=== PATIENT | male | born 1980 | race African-American/Black ===

== ENCOUNTER 2017-04-01 15:35 | Inpatient (IN) | payer OTHER ==
[~2017-04-01] VITALS: Ht 185.4 cm; Wt 113.1 kg
[~2017-04-01 15:35] MED LIST: HYDR25TA84 PO; LISI-661 PO
[2017-04-01 17:16] LABS: BASOPHILS % (AUTO) 0.5 % (0.0-2.0); CALCIUM, TOTAL 8.7 mg/dL (8.8-10.5); CREATININE 2.74 mg/dL (0.60-1.30); EOSINOPHILS % (AUTO) 3.8 % (1.0-6.0); HEMOGLOBIN 15.6 g/dL (13.5-17.5); LYMPHOCYTES # (AUTO) 2.6 K/uL (1.0-4.8); LYMPHOCYTES % (AUTO) 35.6 % (22.0-44.0); MEAN CORPUSCULAR HEMOGLOBIN 30.6 pg (26.0-34.0); MEAN CORPUSCULAR HGB CONC 33.9 G/dL (31.0-37.0); MEAN CORPUSCULAR VOLUME 90 fL (80-100); MONOCYTES # (AUTO) 0.7 K/uL (0.1-1.0); MONOCYTES % (AUTO) 9.7 % (2.0-9.0); NEUTROPHILS # (AUTO) 3.7 K/uL (1.8-7.7); NEUTROPHILS % (AUTO) 50.4 % (40.0-70.0); PLATELET COUNT (AUTO) 148 K/uL (150-450); POTASSIUM 3.4 mmol/L (3.5-5.1); RED CELL DISTRIBUTION WIDTH 13.1 % (11.5-14.5); WHITE BLOOD COUNT (AUTO) 7.4 K/uL (4.5-11.0)
[2017-04-01 17:22] LABS: ALBUMIN 2.8 g/dL (3.4-5.0); BILIRUBIN,TOTAL 0.4 mg/dL (0.1-1.0); TOTAL PROTEIN, SERUM 7.2 g/dL (6.4-8.2)
[2017-04-01] MEDS ORDERED: NITROGLYCERIN 2% (1 GM=INCH) PACKET TP ONE (17:45)
[2017-04-01] MEDS ORDERED: HydrALAZINE HCL 25 MG TABLET PO ONE (17:45)
[2017-04-01] MEDS ORDERED: AmLODIPine BESYLATE 5 MG TABLET PO ONE ×2 (17:45)
[2017-04-01] MEDS ORDERED: HydrALAZINE HCL 20 MG/ML VIAL IVP ONE (17:45)
[2017-04-01] MEDS ORDERED: ASPIRIN 325 MG TABLET PO ONE (17:45)
[2017-04-01] MEDS ORDERED: LISINOPRIL 10 MG TABLET PO ONE ×2 (17:45→21:45)
[2017-04-01] MEDS ORDERED: ACETAMINOPHEN 325 MG TABLET PO PRN (19:00)
[2017-04-01] MEDS ORDERED: ONDANSETRON HCL 4 MG/2 ML VIAL IVP PRN (19:00)
[2017-04-01] MEDS ORDERED: 0.9% SODIUM CHLORIDE 10 ML SYRINGE IVP PRN (19:00)
[2017-04-01] MEDS ORDERED: CYCLOBENZAPRINE HCL 10 MG TABLET PO ONE (19:30)
[2017-04-01] MEDS ORDERED: IBUPROFEN 400 MG TABLET PO ONE (19:30)
[2017-04-01 20:45] VITALS: BP 186/106
[2017-04-01] MEDS: NITROGLYCERIN 2% (1 GM=INCH) PACKET TP SCH (22:03)
[2017-04-01] MEDS ORDERED: POTASSIUM CHLORIDE 20 MEQ ER TABLET PO ONE (23:30)
[2017-04-02] VITALS (9 sets, daily range): BP systolic 134–185; BP diastolic 85–118
[2017-04-02] MEDS: HYDROCODONE/ACETAMINOPHEN 5-325 MG TABLET PO PRN ×3 (00:18→20:52)
[2017-04-02] MEDS: HEPARIN SODIUM,PORCINE 5,000 UNITS/ML VIAL SQ SCH ×4 (00:24→23:19)
[2017-04-02] MEDS: SODIUM BICARBONATE 650 MG TABLET PO SCH ×3 (01:12→20:52)
[2017-04-02] MEDS: ENALAPRILAT DIHYDRATE 1.25 MG/ML 2 ML VIAL IVP PRN ×2 (01:13→05:47)
[2017-04-02] MEDS: NITROGLYCERIN 2% (1 GM=INCH) PACKET TP SCH ×4 (05:47→23:20)
[2017-04-02] MEDS: HydrALAZINE HCL 25 MG TABLET PO SCH ×4 (07:51→20:52)
[2017-04-02] MEDS ORDERED: PANTOPRAZOLE SODIUM 40 MG DR TABLET PO SCH (09:00)
[2017-04-02] MEDS ORDERED: LISINOPRIL 10 MG TABLET PO SCH (09:00)
[2017-04-02] MEDS: ACETAMINOPHEN 325 MG TABLET PO PRN ×2 (10:19→23:19)
[2017-04-02] MEDS: AmLODIPine BESYLATE 5 MG TABLET PO SCH (10:19)
[2017-04-02 10:24] LABS: BASOPHILS % (AUTO) 0.3 % (0.0-2.0); EOSINOPHILS % (AUTO) 0.5 % (1.0-6.0); HEMATOCRIT 47.3 % (41-53); HEMOGLOBIN 15.9 g/dL (13.5-17.5); LYMPHOCYTES % (AUTO) 19.7 % (22.0-44.0); MEAN CORPUSCULAR HEMOGLOBIN 30.7 pg (26.0-34.0); MEAN CORPUSCULAR HGB CONC 33.7 G/dL (31.0-37.0); MEAN CORPUSCULAR VOLUME 91 fL (80-100); MONOCYTES # (AUTO) 0.4 K/uL (0.1-1.0); MONOCYTES % (AUTO) 3.8 % (2.0-9.0); NEUTROPHILS # (AUTO) 7.6 K/uL (1.8-7.7); NEUTROPHILS % (AUTO) 75.7 % (40.0-70.0); PLATELET COUNT (AUTO) 161 K/uL (150-450); RED BLOOD CELL COUNT(AUTO) 5.19 MIL/uL (4.50-5.90)
[2017-04-02] MEDS ORDERED: METOPROLOL TARTRATE 25 MG TABLET PO SCH (10:30)
[2017-04-02] MEDS ORDERED: LISINOPRIL 20 MG TABLET PO ONE (10:30)
[2017-04-02] MEDS: METOPROLOL TARTRATE 25 MG TABLET PO SCH (20:52)
[2017-04-03 03:33] VITALS: BP 175/137
[2017-04-03] MEDS: ACETAMINOPHEN 325 MG TABLET PO PRN (03:44)
[2017-04-03] MEDS: ENALAPRILAT DIHYDRATE 1.25 MG/ML 2 ML VIAL IVP PRN (03:45)
[2017-04-03] MEDS: NITROGLYCERIN 2% (1 GM=INCH) PACKET TP SCH (06:17)
[2017-04-03 06:25] LABS: B-TYPE NATRIURETIC PEPTIDE 323 pg/mL (0-100)
[2017-04-03 06:58] LABS: ANION GAP 4 mmol/L (8-16); CALCIUM, TOTAL 8.7 mg/dL (8.8-10.5); CARBON DIOXIDE 30 mmol/L (22-29); CHLORIDE 103 mmol/L (98-107); CREATINE KINASE MB 4.3 ng/mL (0-5); CREATINE KINASE, TOTAL 364 U/L (39-308); CREATININE 2.72 mg/dL (0.60-1.30); GLOMERULAR FILTR. RATE CALC 32 mL/min (>60); POTASSIUM 3.8 mmol/L (3.5-5.1); SODIUM SERUM 137 mmol/L (136-145); UREA NITROGEN, BLOOD 25 mg/dL (7-18)
[2017-04-03 07:06] VITALS: BP 169/140
[2017-04-03 07:14] VITALS: BP 159/128
[2017-04-03] MEDS: METOPROLOL TARTRATE 25 MG TABLET PO SCH (08:15)
[2017-04-03] MEDS: AmLODIPine BESYLATE 5 MG TABLET PO SCH (08:15)
[2017-04-03] MEDS ORDERED: LISINOPRIL 10 MG TABLET PO SCH (09:00)
== END 2017-04-03 08:45 | disposition left against medical advice (07) | DRG 199 ==
LOC: EMS 15:37 → 5N 20:07
PROVIDERS: ADMIT Internal Medicine; ATTEND Internal Medicine
DX: I16.0 Hypertensive urgency (principal); I12.9 Hypertensive chronic kidney disease with stage 1 through stage 4 chronic kidney disease, or unspecified chronic kidney disease; E87.6 Hypokalemia; G89.29 Other chronic pain; N18.2 Chronic kidney disease, stage 2 (mild); M54.2 Cervicalgia; Z87.891 Personal history of nicotine dependence
CPT/HCPCS: 72040; 76770; 84132; 93005; 96374; 99291; J0360; J1644; J3490